=== PATIENT | male | born 1990 ===

== ENCOUNTER 2024-03-26 17:35 | Emergency (ER) | payer OTHER ==
[~2024-03-26] VITALS: Ht 182.9 cm; Wt 101.8 kg
[2024-03-26 17:44] VITALS: BP 128/82; PULSE 102; RESP 18; TEMP 98.6; O2SAT 99
== END 2024-03-26 20:12 | disposition left against medical advice (07) ==
LOC: EMS 17:35
DX: Z53.21 Procedure and treatment not carried out due to patient leaving prior to being seen by health care provider (principal)